=== PATIENT | male | born 1945 | race Two or more races ===

== ENCOUNTER → 2021-07-23 | Outpatient (CLI) | payer OTHER | END | disposition home or self-care (01) | LOC: PPH VACUNA 15:00 | PROVIDERS: ATTEND Emergency Medicine Pediatric Emergency Medicine | DX: Z23 Encounter for immunization (principal) ==

== ENCOUNTER 2021-09-01 14:06 | Outpatient (CLI) | payer OTHER | END 2021-09-01 14:08 | disposition home or self-care (01) | LOC: SONOGRAMA 14:06 | PROVIDERS: ATTEND Urology | DX: N40.0 Benign prostatic hyperplasia without lower urinary tract symptoms (principal); R33.8 Other retention of urine; F52.21 Male erectile disorder ==

== ENCOUNTER 2022-05-05 16:00 | Outpatient (CLI) | payer OTHER | END 2022-05-05 16:05 | disposition home or self-care (01) | LOC: RAD 16:00 | PROVIDERS: ATTEND Internal Medicine Rheumatology | DX: M17.0 Bilateral primary osteoarthritis of knee (principal) ==

== ENCOUNTER 2023-01-07 16:18 | Outpatient (CLI) | payer OTHER | END 2023-01-07 16:29 | disposition home or self-care (01) | LOC: RAD 16:18 | PROVIDERS: ATTEND Internal Medicine Rheumatology | DX: M17.0 Bilateral primary osteoarthritis of knee (principal) ==

== ENCOUNTER 2023-11-15 10:34 | Outpatient (CLI) | payer OTHER | END 2023-11-15 10:36 | disposition home or self-care (01) | LOC: SONOGRAMA 10:34 | PROVIDERS: ATTEND Internal Medicine | DX: E04.9 Nontoxic goiter, unspecified (principal) ==

== ENCOUNTER 2023-11-15 13:07 | Outpatient (CLI) | payer OTHER | END 2023-11-15 13:09 | disposition home or self-care (01) | LOC: NUCLEAR 13:07 | PROVIDERS: ATTEND Internal Medicine | DX: Z13.820 Encounter for screening for osteoporosis (principal) ==

== ENCOUNTER 2023-11-16 07:17 | Outpatient (CLI) | payer OTHER | END 2023-11-16 07:23 | disposition home or self-care (01) | LOC: SONOGRAMA 07:17 | PROVIDERS: ATTEND Internal Medicine | DX: R10.9 Unspecified abdominal pain (principal) ==

== ENCOUNTER → 2024-02-15 | Outpatient (CLI) | payer OTHER | END | disposition home or self-care (01) | LOC: TOM 11:52 | PROVIDERS: ATTEND Specialist | DX: R91.1 Solitary pulmonary nodule (principal) ==

== ENCOUNTER 2025-02-19 11:08 | Outpatient (CLI) | payer OTHER | END 2025-02-19 11:14 | disposition home or self-care (01) | LOC: SONOGRAMA 11:08 | PROVIDERS: ATTEND Urology | DX: R31.1 Benign essential microscopic hematuria (principal); N40.1 Benign prostatic hyperplasia with lower urinary tract symptoms ==

== ENCOUNTER 2025-03-15 16:03 | Outpatient (CLI) | payer OTHER | END 2025-03-15 16:07 | disposition home or self-care (01) | LOC: RAD 16:03 | PROVIDERS: ATTEND Specialist | DX: R05.1 Acute cough (principal) ==